=== PATIENT | female | born 1965 | race Native Hawaiian/Other Pacific Islander ===

== ENCOUNTER 2018-06-02 10:33 | Outpatient (CLI) | payer OTHER | END 2018-06-02 19:55 | disposition home or self-care (01) | LOC: RESP 10:33 | DX: I10 Essential (primary) hypertension (principal) | CPT/HCPCS: 93005 ==

== ENCOUNTER 2019-04-13 13:51 | Outpatient (CLI) | payer OTHER ==
[2019-04-13 14:25] LABS: PLATELET COUNT 395 K/uL (152-353)
[2019-04-13 14:34] LABS: POTASSIUM 4.2 mmol/L (3.6-5.2)
== END 2019-04-13 20:21 | disposition home or self-care (01) ==
LOC: LABW 13:51
PROVIDERS: Internal Medicine
DX: I12.9 Hypertensive chronic kidney disease with stage 1 through stage 4 chronic kidney disease, or unspecified chronic kidney disease (principal); N18.3 Chronic kidney disease, stage 3 (moderate)
CPT/HCPCS: 36415; 80053; 81000; 82088; 82330; 82533; 82570; 83735; 83835; 83970; 84100; 84155; 84244; 85027

== ENCOUNTER 2020-12-23 11:38 | Outpatient (CLI) | payer OTHER | END 2020-12-23 20:04 | disposition home or self-care (01) | LOC: MAMMO 11:38 | PROVIDERS: ATTEND Registered Nurse | DX: Z12.31 Encounter for screening mammogram for malignant neoplasm of breast (principal) ==

== ENCOUNTER 2022-08-20 13:20 | Outpatient (CLI) | payer OTHER | END 2022-08-20 17:00 | disposition home or self-care (01) | LOC: RAD 13:20 | PROVIDERS: ATTEND Internal Medicine Critical Care Medicine | DX: J45.40 Moderate persistent asthma, uncomplicated (principal) ==